=== PATIENT | male | born 1985 | race Two or more races ===

== ENCOUNTER 2020-12-07 09:57 | Inpatient (IN) | payer BC, OTHER ==
[~2020-12-07] VITALS: Ht 167.6 cm; Wt 122.0 kg
--- NOTE | 2020-12-07 10:55 | RAD ---
EXAM: Chest, single view. HISTORY: Cough. Covid 19. COMPARISON: None. FINDINGS: A frontal view of the chest obtained. There is diffuse interstitial and alveolar infiltrate . There is no consolidation, pleural effusion or pneumothorax. The heart is normal in size for portab le technique. IMPRESSION: Diffuse mixed interstitial and alveolar infiltrate. Electronically signed by: Karishma Jordan MD (12/07/2020 10:52 AM) [id number]
[2020-12-07] MEDS ORDERED: CEFEPIME HCL IV Push 1 GM VIAL. IVP ONE (11:15)
[2020-12-07] MEDS ORDERED: IV NORMAL SALINE 1000ML BAG 1,000 ML IV ONE (11:15)
[2020-12-07] MEDS ORDERED: AZITHRMYCN 500MG IVPB FOR OMNI 250 ML IV ONE (11:15)
[2020-12-07] MEDS ORDERED: DEXAMETHASONE SOD PHOS 20 MG/5 ML VIAL. IV ONE (11:15)
--- NOTE | 2020-12-07 11:38 | PHYS DOC ---
Past Medical History Past Medical History: No Pertinent History Past Surgical History: No Surgical History Smoking Status: Never Smoker Alcohol Use: None General Adult EDM: Chief Complaint: COUGH HPI: HPI: 35-year-old male presenting to the emergency department today with cough fever his cough is nonproductive. He also has headache. He denies any known Covid exposure. He denies chest pain. He has muscle aches throughout his entire body. He does have chills. His headache was not sudden in onset and is mild in severity. He denies nuchal rigidity. Onset 2 to 3 days. Duration i ntermittent. No alleviating or exacerbating factors. Review of systems is negative for chest pain. He does have some shortness of breath with exertion but at rest is not short of breath. He denies vomiting. Positive for fevers. Negative for rash. Negative for nuchal rigidity. He denies abdominal pain all other review of systems negative. ED course: 35-year-old male presenting with cough congestion fevers and flulike symptoms. X-ray shows pneumonia. CBC unremarkable. Chemistry panel unremarkable. LDH is elevated. CRP is elevated. D-dimer within normal limits. Influenza negative. Suspect Covid pneumonia. Patient was given broad-spectrum antibiotics and Decadron and admitted to the hospitalist who accepts the patient for admission. Heart Score: Risk Factors: Risk Factors: DM, Current or recent (<one month) smoker, HTN, HLP, family hi story of CAD, obesity. Risk Scores: Score 0 - 3: 2.5% MACE over next 6 weeks - Discharge Home Score 4 - 6: 20.3% MACE over next 6 weeks - Admit for Clinical Observation Score 7 - 10: 72.7% MACE over next 6 weeks - Early Invasive Strategies Current Medications: Current Medications Medications (Trade) Dose Ordered Sig/Ronen Start Time Stop Time Status Last Admin Dose Admin Azithromycin 250 ml @ 250 mls/hr 1X ONCE 12/07/20 11:15 12/07/20 12:14 12/07/20 11:33 250 MLS/HR Cefepime HCl (Maxipime) 1 gm 1X ONCE 12/07/20 11:15 12/07/20 11:16 DC 12/07/20 11:33 1 GM Dexamethasone Sodium Phosphate (Decadron) 6 mg 1X ONCE 12/07/20 11:15 12/07/20 11:16 DC 12/07/20 11:30 6 MG Sodium Chloride 1,000 ml @ 1,000 mls/hr 1X ONCE 12/07/20 11:15 12/07/20 12:14 12/07/20 11:33 1,000 MLS/HR Allergies: Allergies: Allergies Coded Allergies Type Severity Reaction Last Updated Verified No Known Drug Allergies 12/07/20 No Physical Exam: PE: Constitutional: Well developed, well nourished, no acute distress, non-toxic appearance. [] HENT: Normocephalic, atraumatic, bilateral external ears normal, oropharynx moist, no oral exudates, nose normal. [] Eyes: PERRLA, EOMI, conjunctiva normal, no discharge. [] Neck: Normal range of motion, no tenderness, supple, no stridor. [] No nuchal rigidity. No rashes. Cardiovascular:Heart rate regular rhythm, no murmur [] Lungs & Thorax: Crackles bilaterally without rhonchi. No wheezing. Not in respiratory distress. Abdomen: Bowel sounds normal, soft, no tenderness, no masses, no pulsatile masses. [] Skin: Warm, dry, no erythema, no rash. [] Back: No tenderness, no CVA tenderness. [] Extremities: No tenderness, no cyanosis, no clubbing, ROM intact, no edema. [] Neurologic: Alert and oriented X 3, normal motor function, normal sensory function, no focal deficits noted. [] Psychologic: Affect normal, judgement normal, mood normal. [] Current Patient Data: Vital Signs: Vital Signs Date Time Temp Pulse Resp B/P (MAP) Pulse Ox O2 Delivery O2 Flow Rate FiO2 12/07/20 10:16 103.0 121 18 153/79 (103) 94 Room Air 103.0 EKG: EKG: [] Radiology/Procedures: Radiology/Procedures: [] Course & Med Decision Making: Course & Med Decision Making Pertinent Labs and Imaging studies reviewed. (See chart for details) [] Dragon Disclaimer: Dragon Disclaimer: This electronic medical record was generated, in whole or in part, using a voice recognition dictation system. Departure Departure Impression: Primary Impression: Pneumonia due to COVID-19 virus Disposition: ADMITTED INPT THIS HOSP Admitting Physician: HIMS Condition: STABLE Referrals: NO PCP (PCP) REBECCA DIETZ MD Dec 07, 2020 11:38
[2020-12-07 11:41] LABS: EOS % 0 % (0-3); HEMATOCRIT 42.5 % (39.0-53.0); HEMOGLOBIN 14.8 g/dL (13.0-17.5); LYMPH % 18 % (24-48); MEAN CORPUSCULAR HEMOGLOBIN 30 pg (25-35); MEAN CORPUSCULAR HGB CONC 35 g/dL (31-37); MEAN CORPUSCULAR VOLUME 86 fL (79-100); MONO % 6 % (0-9); NEUT % 76 % (31-73); PLATELET COUNT 139 x10^3/uL (140-400); RED BLOOD COUNT 4.95 x10^6/uL (4.30-5.70); RED CELL DISTRIBUTION WIDTH 13.2 % (11.5-14.5); WHITE BLOOD COUNT 6.2 x10^3/uL (4.0-11.0)
[2020-12-07 11:42] LABS: BASO % 0 % (0-3); LYMPH # 1.1 x10^3/uL (1.0-4.8); MONO # 0.4 x10^3/uL (0.0-1.1); NEUT # 4.7 x10^3/uL (1.8-7.7)
[2020-12-07 11:54] LABS: CALCIUM 8.7 mg/dL (8.5-10.1); CREATININE 0.8 mg/dL (0.7-1.3); GFR 109.4; POTASSIUM 3.4 mmol/L (3.5-5.1)
[2020-12-07 11:57] LABS: INFLUENZA A PATIENT NEGATIVE (NEGATIVE); INFLUENZA B PATIENT NEGATIVE (NEGATIVE)
[2020-12-07 12:01] LABS: ALBUMIN 3.5 g/dL (3.4-5.0); ALBUMIN/GLOBULIN RATIO 0.8 (1.0-1.7); TOTAL BILIRUBIN 0.4 mg/dL (0.2-1.0); TOTAL PROTEIN 7.8 g/dL (6.4-8.2)
[2020-12-07] MEDS ORDERED: IV NORMAL SALINE 1000ML BAG 1,000 ML IV SCH (12:45)
[2020-12-07 14:30] VITALS: BP 141/81
[2020-12-07] MEDS ORDERED: oxyCODONE IR 5 MG TABLET PO PRN (16:15)
[2020-12-07] MEDS ORDERED: CALCIUM CARBONATE 500 MG TAB.CHEW PO PRN (16:15)
[2020-12-07] MEDS ORDERED: MAGNESIUM HYDROXIDE 2,400 MG/30 ML ORAL.SUSP. PO PRN (16:15)
[2020-12-07] MEDS ORDERED: ACETAMINOPHEN 325 MG TABLET. PO PRN (16:15)
[2020-12-07] MEDS ORDERED: LACTULOSE 20 GM/30 ML SOLUTION. PO PRN (16:15)
[2020-12-07] MEDS ORDERED: ONDANSETRON PF 4 MG/2 ML VIAL. IVP PRN (16:15)
[2020-12-07] MEDS ORDERED: ZOLPIDEM 5 MG TABLET. PO PRN (16:15)
[2020-12-07] MEDS ORDERED: MAG HYDROX/ALUMINUM HYD/SIMETH 30 ML ORAL.SUSP PO PRN (16:15)
[2020-12-07] MEDS ORDERED: ELECTROLYTE (NON-ICU) PROTOCOL. MC PRN (16:15)
[2020-12-07] MEDS ORDERED: MORPHINE SULFATE 2 MG/ML VIAL. IV PRN (16:15)
[2020-12-07] MEDS: PIPERACILLIN/TAZOBACTAM 4.5 GM in IV NORMAL SALINE 100ML 100 ML IV SCH (16:47)
[2020-12-07] MEDS ORDERED: ENOXAPARIN 40 MG/0.4 ML SYRINGE. SQ SCH (17:00)
--- NOTE | 2020-12-07 17:50 | PDOC1 ---
History and Physical Date of Admission Date of Admission 12/07/2020 Identification/Chief Complaint Chief Complaint I feel ill Source Source: Chart review, Patient History of Present Illness History of Present Illness Patient is a 35-year-old gentleman with no seen medical history who works as a local [place] truck driver who was in his usual state of health until yesterday evening when he started noticing generalized malaise fatigue headache. Subjective fever has been reported by the patient he denies any diaphoresis he has not quantified his temperature. He felt like he was coming down with a common cold and fell asleep, he did not have sputum production she did he did complain of a mild cough dry in nature no tachypnea no sensation of impending doom has been reported. Patient unfortunately woke up with similar symptoms and actually feeling worse compared to yesterday reason why he decided to consult the emergency department. He was found to have an abnormal x-ray and due to the acuity of his presentation patient is being admitted at the request of the ER for further evaluation and treatment. He is not requiring oxygen at the present time is hemodynamically stable. The plan of care has been explained in detail. The patient denies any contact with sick patients of COVID-19. For the most part he has absurd social distancing and or mask. He is complaining of headache generalized malaise at the time of my evaluation seems acutely ill no chest pain palpitations no abdominal pain he does refer some nausea no vomiting at the present time lower extremities with no edema. No neurological deficit appreciated. Plan of care has been explained detail and all of his concerns addressed to the best of my abilities Past Medical History Past Medical History No significant past medical history Cardiovascular: No pertinent hx Past Surgical History Past Surgical History: No pertinent history Family History Family History: No Significant Social History Smoke: No ALCOHOL: none Drugs: None Current Problem List Problem List Problems Medical Problems: (1) Pneumonia due to COVID-19 virus Status: Acute Current Medications Current Medications Current Medications Medications (Trade) Dose Ordered Sig/Ronen Start Time Stop Time Status Last Admin Dose Admin Acetaminophen (Tylenol) 650 mg PRN Q6HRS PRN 12/07/20 16:15 Al Hydroxide/Mg Hydroxide (Mylanta Plus Xs) 30 ml PRN Q3HRS PRN 12/07/20 16:15 Azithromycin (Zithromax) 500 mg DAILY 12/08/20 09:00 Calcium Carbonate/ Glycine (Tums) 500 mg PRN Q3HRS PRN 12/07/20 16:15 Cefepime HCl (Maxipime) 1 gm 1X ONCE 12/07/20 11:15 12/07/20 11:16 DC 12/07/20 11:33 1 GM Dexamethasone Sodium Phosphate (Decadron) 6 mg 1X ONCE 12/07/20 11:15 12/07/20 11:16 DC 12/07/20 11:30 6 MG Docusate Sodium (Colace) 100 mg BID 12/07/20 21:00 Enoxaparin Sodium (Lovenox 40mg Syringe) 40 mg Q24H 12/07/20 17:00 12/07/20 16:49 40 MG Info (Non-Icu Electrolyte Protocol) 1 ea PRN DAILY PRN 12/07/20 16:15 Lactulose (Lactulose) 20 gm PRN Q12HR PRN 12/07/20 16:15 Magnesium Hydroxide (Milk Of Magnesia) 2,400 mg PRN Q12HR PRN 12/07/20 16:15 Methylprednisolone Sodium Succinate (SOLU-Medrol 40MG VIAL) 40 mg Q12HR 12/07/20 21:00 Morphine Sulfate (Morphine Sulfate) 2 mg PRN Q1HR PRN 12/07/20 16:15 Ondansetron HCl (Zofran) 4 mg PRN Q6HRS PRN 12/07/20 16:15 Oxycodone HCl (Roxicodone) 5 mg PRN Q3HRS PRN 12/07/20 16:15 Piperacillin Sod/ Tazobactam Sod 4.5 gm/Sodium Chloride 100 ml @ 200 mls/hr Q6HRS 12/07/20 17:00 12/07/20 16:47 200 MLS/HR Senna/Docusate Sodium (Senna Plus) 1 tab BID 12/07/20 21:00 Sodium Chloride 1,000 ml @ 100 mls/hr Q10H 12/07/20 12:45 12/07/20 16:44 DC 12/07/20 15:32 100 MLS/HR Zolpidem Tartrate (Ambien) 5 mg PRN QHS PRN 12/07/20 16:15 Allergies Allergies Allergies Coded Allergies Type Severity Reaction Last Updated Verified No Known Drug Allergies 1/8/21 No ROS Review of System CONSTITUTIONAL: No fever or chills EYES: No recent changes SKIN: No rash or itching CARDIOVASCULAR: No chest pain, syncope, palpitations, or edema RESPIRATORY: No SOB or cough GASTROINTESTINAL: No nausea, vomiting or abdominal pain NEUROLOGICAL: No headaches or weakness ENDOCRINE: No cold or heat intolerance GENITOURINARY: No urgency or frequency of urination MUSCULOSKELETAL: No back pain or joint pain LYMPHATICS: No enlarged lymph nodes PSYCHIATRIC: No anxiety or depression Physical Exam Physical Exam GEN.: No apparent distress. Alert and oriented. HEENT: Head is normocephalic, atraumatic NECK: Supple. LUNGS: Clear to auscultation. HEART: RRR, S1, S2 present. Peripheral pulses intact ABDOMEN: Soft, nontender. Positive bowel sounds. EXTREMITIES: Without any cyanosis. NEUROLOGIC: Normal speech, normal tone PSYCHIATRIC: Normal affect, normal mood. SKIN: No ulcerations Vitals Vitals Vital Signs Date Time Temp Pulse Resp B/P (MAP) Pulse Ox O2 Delivery O2 Flow Rate FiO2 12/07/20 14:30 100.3 106 18 141/81 (101) 93 Room Air 100.3 Labs Labs Laboratory Tests Test 12/07/20 11:22 12/07/20 11:25 White Blood Count 6.2 x10^3/uL (4.0-11.0) Red Blood Count 4.95 x10^6/uL (4.30-5.70) Hemoglobin 14.8 g/dL (13.0-17.5) Hematocrit 42.5 % (39.0-53.0) Mean Corpuscular Volume 86 fL (79-100) Mean Corpuscular Hemoglobin 30 pg (25-35) Mean Corpuscular Hemoglobin Concent 35 g/dL (31-37) Red Cell Distribution Width 13.2 % (11.5-14.5) Platelet Count 139 x10^3/uL (140-400) Neutrophils (%) (Auto) 76 % (31-73) Lymphocytes (%) (Auto) 18 % (24-48) Monocytes (%) (Auto) 6 % (0-9) Eosinophils (%) (Auto) 0 % (0-3) Basophils (%) (Auto) 0 % (0-3) Neutrophils # (Auto) 4.7 x10^3/uL (1.8-7.7) Lymphocytes # (Auto) 1.1 x10^3/uL (1.0-4.8) Monocytes # (Auto) 0.4 x10^3/uL (0.0-1.1) Eosinophils # (Auto) 0.0 x10^3/uL (0.0-0.7) Basophils # (Auto) 0.0 x10^3/uL (0.0-0.2) D-Dimer (Emi) 0.42 ug/mlFEU (0.00-0.50) Sodium Level 136 mmol/L (136-145) Potassium Level 3.4 mmol/L (3.5-5.1) Chloride Level 100 mmol/L (98-107) Carbon Dioxide Level 25 mmol/L (21-32) Anion Gap 11 (6-14) Blood Urea Nitrogen 11 mg/dL (8-26) Creatinine 0.8 mg/dL (0.7-1.3) Estimated GFR (Cockcroft-Gault) 109.4 BUN/Creatinine Ratio 14 (6-20) Glucose Level 108 mg/dL (70-99) Lactic Acid Level 1.0 mmol/L (0.4-2.0) Calcium Level 8.7 mg/dL (8.5-10.1) Total Bilirubin 0.4 mg/dL (0.2-1.0) Aspartate Amino Transf (AST/SGOT) 40 U/L (15-37) Alanine Aminotransferase (ALT/SGPT) 41 U/L (16-63) Alkaline Phosphatase 38 U/L (46-116) Lactate Dehydrogenase 352 U/L (85-227) C-Reactive Protein, Quantitative 71.0 mg/L (0-3.3) Total Protein 7.8 g/dL (6.4-8.2) Albumin 3.5 g/dL (3.4-5.0) Albumin/Globulin Ratio 0.8 (1.0-1.7) Influenza Type A Antigen Negative (NEGATIVE) Influenza Type B Antigen Negative (NEGATIVE) Laboratory Tests Test 12/07/20 11:22 12/07/20 11:25 White Blood Count 6.2 x10^3/uL (4.0-11.0) Red Blood Count 4.95 x10^6/uL (4.30-5.70) Hemoglobin 14.8 g/dL (13.0-17.5) Hematocrit 42.5 % (39.0-53.0) Mean Corpuscular Volume 86 fL (79-100) Mean Corpuscular Hemoglobin 30 pg (25-35) Mean Corpuscular Hemoglobin Concent 35 g/dL (31-37) Red Cell Distribution Width 13.2 % (11.5-14.5) Platelet Count 139 x10^3/uL (140-400) Neutrophils (%) (Auto) 76 % (31-73) Lymphocytes (%) (Auto) 18 % (24-48) Monocytes (%) (Auto) 6 % (0-9) Eosinophils (%) (Auto) 0 % (0-3) Basophils (%) (Auto) 0 % (0-3) Neutrophils # (Auto) 4.7 x10^3/uL (1.8-7.7) Lymphocytes # (Auto) 1.1 x10^3/uL (1.0-4.8) Monocytes # (Auto) 0.4 x10^3/uL (0.0-1.1) Eosinophils # (Auto) 0.0 x10^3/uL (0.0-0.7) Basophils # (Auto) 0.0 x10^3/uL (0.0-0.2) D-Dimer (Emi) 0.42 ug/mlFEU (0.00-0.50) Sodium Level 136 mmol/L (136-145) Potassium Level 3.4 mmol/L (3.5-5.1) Chloride Level 100 mmol/L (98-107) Carbon Dioxide Level 25 mmol/L (21-32) Anion Gap 11 (6-14) Blood Urea Nitrogen 11 mg/dL (8-26) Creatinine 0.8 mg/dL (0.7-1.3) Estimated GFR (Cockcroft-Gault) 109.4 BUN/Creatinine Ratio 14 (6-20) Glucose Level 108 mg/dL (70-99) Lactic Acid Level 1.0 mmol/L (0.4-2.0) Calcium Level 8.7 mg/dL (8.5-10.1) Total Bilirubin 0.4 mg/dL (0.2-1.0) Aspartate Amino Transf (AST/SGOT) 40 U/L (15-37) Alanine Aminotransferase (ALT/SGPT) 41 U/L (16-63) Alkaline Phosphatase 38 U/L (46-116) Lactate Dehydrogenase 352 U/L (85-227) C-Reactive Protein, Quantitative 71.0 mg/L (0-3.3) Total Protein 7.8 g/dL (6.4-8.2) Albumin 3.5 g/dL (3.4-5.0) Albumin/Globulin Ratio 0.8 (1.0-1.7) Influenza Type A Antigen Negative (NEGATIVE) Influenza Type B Antigen Negative (NEGATIVE) VTE Prophylaxis Ordered VTE Prophylaxis Devices: No VTE Pharmacological Prophylaxi: Yes Assessment/Plan Assessment/Plan Atypical pneumonia Morbid obesity with a BMI of 43 Thrombocytopenia Hypokalemia Hyperglycemia Plan: Supportive measures We will start the patient on broad-spectrum antibiotics We will start Solu-Medrol Follow results of coronavirus PCR Symptomatic relief of headache and generalized malaise DVT prophylaxis low Further recommendations based on the clinical course Justifications for Admission General Conditions Poss Metaboilic Acidosis?: Yes Other Justification DAYSI WATTS MD Dec 07, 2020 17:50
[2020-12-07 19:00] VITALS: BP 175/70
[2020-12-07] MEDS: methylPREDNISolone SOD SUCC PF 40 MG/ML VIAL. IV SCH (20:51)
[2020-12-07] MEDS: DOCUSATE SODIUM 100 MG CAPSULE. PO SCH (20:51)
[2020-12-07] MEDS: SENNOSIDES/DOCUSATE 8.6/50MG TABLET. PO SCH (20:51)
[2020-12-07 23:35] VITALS: BP 139/67
[2020-12-08] MEDS: PIPERACILLIN/TAZOBACTAM 4.5 GM in IV NORMAL SALINE 100ML 100 ML IV SCH ×4 (00:29→18:00)
[2020-12-08 03:50] VITALS: BP 198/82
[2020-12-08 04:24] LABS: BASO % 0 % (0-3); EOS % 0 % (0-3); HEMOGLOBIN 14.1 g/dL (13.0-17.5); LYMPH % 31 % (24-48); MEAN CORPUSCULAR HEMOGLOBIN 30 pg (25-35); MEAN CORPUSCULAR HGB CONC 34 g/dL (31-37); MEAN CORPUSCULAR VOLUME 86 fL (79-100); MONO # 0.1 x10^3/uL (0.0-1.1); MONO % 4 % (0-9); NEUT # 2.2 x10^3/uL (1.8-7.7); NEUT % 65 % (31-73); PLATELET COUNT 140 x10^3/uL (140-400); RED BLOOD COUNT 4.76 x10^6/uL (4.30-5.70); RED CELL DISTRIBUTION WIDTH 13.3 % (11.5-14.5); WHITE BLOOD COUNT 3.3 x10^3/uL (4.0-11.0)
[2020-12-08 05:28] LABS: CALCIUM 8.7 mg/dL (8.5-10.1); CREATININE 0.8 mg/dL (0.7-1.3); GFR 109.4; POTASSIUM 3.9 mmol/L (3.5-5.1)
[2020-12-08 07:00] VITALS: BP 120/71
--- NOTE | 2020-12-08 07:49 | PDOC ---
[employer] PROGRESS NOTE Date of Service DOS: DATE: 12/08/20 TIME: 07:44 Chief Complaint Chief Complaint A/P: Atypical pneumonia Morbid obesity with a BMI of 43 Thrombocytopenia Hypokalemia Hyperglycemia Plan: Supportive measures We will start the patient on broad-spectrum antibiotics We will start Solu-Medrol Follow results of coronavirus PCR Symptomatic relief of headache and generalized malaise DVT prophylaxis low Further recommendations based on the clinical course History of Present Illness History of Present Illness Mr Woods is a 35 yo M with no significant PMHx who works as a taxicab driver who was in his usual state of health until 12/06/20 in the evening when he started noticing generalized malaise fatigue headache as well as fever. He did complain of a mild cough dry in nature. In ED found with abnormal x-ray with bilateral interstitial opacities. He is also febrile 103 F. Labs with WBC 3.3, Hb 14.1, platelets 139, NA 138, K3.9, BUN 12, CR 0.8, glucose 144 LDH 352. Rapid influenza test negative. O2 saturations continued to drop below 90% patient was admitted for further treatment. Highly suspicious for COVID-19. Febrile to 100.6 F overnight. Pain improved after IV doses of Zosyn and azithromycin. O2 saturations 90% on room room air. COVID-19 still pending. He has no loss of sense of taste or smell no change in appetite no abdominal discomfort or diarrhea. His cough is stable. He wishes to convalesce at home regardless of his COVID-19 status and will continue to self isolate until his results are called and he wishes to go home on prednisone and doxycycline after our discussion. Vitals/I&O Vitals/I&O: Vital Signs Date Time Temp Pulse Resp B/P (MAP) Pulse Ox O2 Delivery O2 Flow Rate FiO2 12/08/20 03:50 98.1 73 18 198/82 (120) 90 Room Air 98.1 I & O 12/07/20 12/07/20 12/08/20 14:59 22:59 06:59 Output Total 650 ml Balance -650 ml Physical Exam General: Alert, Oriented X3, Cooperative Heart: Regular rate, Normal S1, Normal S2 Lungs: Clear Abdomen: Normal bowel sounds, Soft Extremities: No clubbing, No cyanosis Skin: No rashes, No breakdown Labs Labs: Laboratory Tests Test 12/07/20 11:22 12/07/20 11:25 12/08/20 03:30 White Blood Count 6.2 x10^3/uL (4.0-11.0) 3.3 x10^3/uL (4.0-11.0) Red Blood Count 4.95 x10^6/uL (4.30-5.70) 4.76 x10^6/uL (4.30-5.70) Hemoglobin 14.8 g/dL (13.0-17.5) 14.1 g/dL (13.0-17.5) Hematocrit 42.5 % (39.0-53.0) 41.0 % (39.0-53.0) Mean Corpuscular Volume 86 fL (79-100) 86 fL (79-100) Mean Corpuscular Hemoglobin 30 pg (25-35) 30 pg (25-35) Mean Corpuscular Hemoglobin Concent 35 g/dL (31-37) 34 g/dL (31-37) Red Cell Distribution Width 13.2 % (11.5-14.5) 13.3 % (11.5-14.5) Platelet Count 139 x10^3/uL (140-400) 140 x10^3/uL (140-400) Neutrophils (%) (Auto) 76 % (31-73) 65 % (31-73) Lymphocytes (%) (Auto) 18 % (24-48) 31 % (24-48) Monocytes (%) (Auto) 6 % (0-9) 4 % (0-9) Eosinophils (%) (Auto) 0 % (0-3) 0 % (0-3) Basophils (%) (Auto) 0 % (0-3) 0 % (0-3) Neutrophils # (Auto) 4.7 x10^3/uL (1.8-7.7) 2.2 x10^3/uL (1.8-7.7) Lymphocytes # (Auto) 1.1 x10^3/uL (1.0-4.8) 1.0 x10^3/uL (1.0-4.8) Monocytes # (Auto) 0.4 x10^3/uL (0.0-1.1) 0.1 x10^3/uL (0.0-1.1) Eosinophils # (Auto) 0.0 x10^3/uL (0.0-0.7) 0.0 x10^3/uL (0.0-0.7) Basophils # (Auto) 0.0 x10^3/uL (0.0-0.2) 0.0 x10^3/uL (0.0-0.2) D-Dimer (Emi) 0.42 ug/mlFEU (0.00-0.50) Sodium Level 136 mmol/L (136-145) 138 mmol/L (136-145) Potassium Level 3.4 mmol/L (3.5-5.1) 3.9 mmol/L (3.5-5.1) Chloride Level 100 mmol/L (98-107) 104 mmol/L (98-107) Carbon Dioxide Level 25 mmol/L (21-32) 27 mmol/L (21-32) Anion Gap 11 (6-14) 7 (6-14) Blood Urea Nitrogen 11 mg/dL (8-26) 12 mg/dL (8-26) Creatinine 0.8 mg/dL (0.7-1.3) 0.8 mg/dL (0.7-1.3) Estimated GFR (Cockcroft-Gault) 109.4 109.4 BUN/Creatinine Ratio 14 (6-20) Glucose Level 108 mg/dL (70-99) 144 mg/dL (70-99) Lactic Acid Level 1.0 mmol/L (0.4-2.0) Calcium Level 8.7 mg/dL (8.5-10.1) 8.7 mg/dL (8.5-10.1) Total Bilirubin 0.4 mg/dL (0.2-1.0) Aspartate Amino Transf (AST/SGOT) 40 U/L (15-37) Alanine Aminotransferase (ALT/SGPT) 41 U/L (16-63) Alkaline Phosphatase 38 U/L (46-116) Lactate Dehydrogenase 352 U/L (85-227) C-Reactive Protein, Quantitative 71.0 mg/L (0-3.3) Total Protein 7.8 g/dL (6.4-8.2) Albumin 3.5 g/dL (3.4-5.0) Albumin/Globulin Ratio 0.8 (1.0-1.7) Influenza Type A Antigen Negative (NEGATIVE) Influenza Type B Antigen Negative (NEGATIVE) Assessment and Plan Assessmemt and Plan Problems Medical Problems: (1) Pneumonia due to COVID-19 virus Status: Acute Comment Review of Relevant I have reviewed the following items robert (where applicable) has been applied. Medications: Current Medications Medications (Trade) Dose Ordered Sig/Ronen Route PRN Reason Start Time Stop Time Status Last Admin Dose Admin Cefepime HCl (Maxipime) 1 gm 1X ONCE IVP 12/07/20 11:15 12/07/20 11:16 DC 12/07/20 11:33 Sodium Chloride 1,000 ml @ 1,000 mls/hr 1X ONCE IV 12/07/20 11:15 12/07/20 12:14 DC 12/07/20 11:33 Azithromycin 250 ml @ 250 mls/hr 1X ONCE IV 12/07/20 11:15 12/07/20 12:14 DC 12/07/20 11:33 Dexamethasone Sodium Phosphate (Decadron) 6 mg 1X ONCE IV 12/07/20 11:15 12/07/20 11:16 DC 12/07/20 11:30 Sodium Chloride 1,000 ml @ 100 mls/hr Q10H IV 12/07/20 12:45 12/07/20 16:44 DC 12/07/20 15:32 Zolpidem Tartrate (Ambien) 5 mg PRN QHS PRN PO INSOMNIA, MAY REPEAT IN 1HR 12/07/20 16:15 12/07/20 20:51 Acetaminophen (Tylenol) 650 mg PRN Q6HRS PRN PO Headaches, Temp > 101.5F 12/07/20 16:15 12/07/20 20:51 Senna/Docusate Sodium (Senna Plus) 1 tab BID PO 12/07/20 21:00 12/07/20 20:51 Docusate Sodium (Colace) 100 mg BID PO 12/07/20 21:00 12/07/20 20:51 Enoxaparin Sodium (Lovenox 40mg Syringe) 40 mg Q24H SQ 12/07/20 17:00 12/07/20 18:12 DC 12/07/20 16:49 Methylprednisolone Sodium Succinate (SOLU-Medrol 40MG VIAL) 40 mg Q12HR IV 12/07/20 21:00 12/07/20 20:51 Piperacillin Sod/ Tazobactam Sod 4.5 gm/Sodium Chloride 100 ml @ 200 mls/hr Q6HRS IV 12/07/20 17:00 12/08/20 00:29 Justifications for Admission General Conditions Poss Metaboilic Acidosis?: Yes Other Justification MOHINI GRANT MD Dec 08, 2020 07:49
--- NOTE | 2020-12-08 08:02 | NUR ---
currently we do not know when this pt will disharge home. we are to do a 6 min walk before discharge home. have cancelled the walk at this time we will need to reorder it once we know pt status with covid test. This was per RT request. Melo Navarro RN
[2020-12-08] MEDS ORDERED: ENOXAPARIN 40 MG/0.4 ML SYRINGE. SQ SCH (09:00)
[2020-12-08] MEDS ORDERED: AZITHROMYCIN 250 MG TABLET. PO SCH (09:00)
[2020-12-08] MEDS: SENNOSIDES/DOCUSATE 8.6/50MG TABLET. PO SCH (09:00)
[2020-12-08] MEDS: DOCUSATE SODIUM 100 MG CAPSULE. PO SCH (09:00)
[2020-12-08] MEDS: methylPREDNISolone SOD SUCC PF 40 MG/ML VIAL. IV SCH (09:28)
[2020-12-08 11:00] VITALS: BP 140/69
[2020-12-08 15:00] VITALS: BP 140/68
[2020-12-08] MEDS ORDERED: DOXY100C2 PO (16:52)
[2020-12-08] MEDS ORDERED: PRED20TA PO (16:52)
--- NOTE | 2020-12-08 17:10 | PDOC3 ---
Discharge Summary Visit Information Date of Admission: Dec 07, 2020 Date of Discharge: Dec 08, 2020 Admitting Diagnosis: Atypical pneumonia Final Diagnosis Problems Medical Problems: (1) Pneumonia due to COVID-19 virus Status: Acute Brief Hospital Course Allergies Allergies Coded Allergies Type Severity Reaction Last Updated Verified No Known Drug Allergies 12/07/20 No Vital Signs Vital Signs Date Time Temp Pulse Resp B/P (MAP) Pulse Ox O2 Delivery O2 Flow Rate FiO2 12/08/20 15:00 98.7 90 17 140/68 (92) 92 Room Air 98.7 Lab Results Laboratory Tests Test 12/07/20 11:22 12/07/20 11:25 12/08/20 03:30 White Blood Count 6.2 x10^3/uL (4.0-11.0) 3.3 x10^3/uL (4.0-11.0) Red Blood Count 4.95 x10^6/uL (4.30-5.70) 4.76 x10^6/uL (4.30-5.70) Hemoglobin 14.8 g/dL (13.0-17.5) 14.1 g/dL (13.0-17.5) Hematocrit 42.5 % (39.0-53.0) 41.0 % (39.0-53.0) Mean Corpuscular Volume 86 fL (79-100) 86 fL (79-100) Mean Corpuscular Hemoglobin 30 pg (25-35) 30 pg (25-35) Mean Corpuscular Hemoglobin Concent 35 g/dL (31-37) 34 g/dL (31-37) Red Cell Distribution Width 13.2 % (11.5-14.5) 13.3 % (11.5-14.5) Platelet Count 139 x10^3/uL (140-400) 140 x10^3/uL (140-400) Neutrophils (%) (Auto) 76 % (31-73) 65 % (31-73) Lymphocytes (%) (Auto) 18 % (24-48) 31 % (24-48) Monocytes (%) (Auto) 6 % (0-9) 4 % (0-9) Eosinophils (%) (Auto) 0 % (0-3) 0 % (0-3) Basophils (%) (Auto) 0 % (0-3) 0 % (0-3) Neutrophils # (Auto) 4.7 x10^3/uL (1.8-7.7) 2.2 x10^3/uL (1.8-7.7) Lymphocytes # (Auto) 1.1 x10^3/uL (1.0-4.8) 1.0 x10^3/uL (1.0-4.8) Monocytes # (Auto) 0.4 x10^3/uL (0.0-1.1) 0.1 x10^3/uL (0.0-1.1) Eosinophils # (Auto) 0.0 x10^3/uL (0.0-0.7) 0.0 x10^3/uL (0.0-0.7) Basophils # (Auto) 0.0 x10^3/uL (0.0-0.2) 0.0 x10^3/uL (0.0-0.2) D-Dimer (Emi) 0.42 ug/mlFEU (0.00-0.50) Sodium Level 136 mmol/L (136-145) 138 mmol/L (136-145) Potassium Level 3.4 mmol/L (3.5-5.1) 3.9 mmol/L (3.5-5.1) Chloride Level 100 mmol/L (98-107) 104 mmol/L (98-107) Carbon Dioxide Level 25 mmol/L (21-32) 27 mmol/L (21-32) Anion Gap 11 (6-14) 7 (6-14) Blood Urea Nitrogen 11 mg/dL (8-26) 12 mg/dL (8-26) Creatinine 0.8 mg/dL (0.7-1.3) 0.8 mg/dL (0.7-1.3) Estimated GFR (Cockcroft-Gault) 109.4 109.4 BUN/Creatinine Ratio 14 (6-20) Glucose Level 108 mg/dL (70-99) 144 mg/dL (70-99) Lactic Acid Level 1.0 mmol/L (0.4-2.0) Calcium Level 8.7 mg/dL (8.5-10.1) 8.7 mg/dL (8.5-10.1) Total Bilirubin 0.4 mg/dL (0.2-1.0) Aspartate Amino Transf (AST/SGOT) 40 U/L (15-37) Alanine Aminotransferase (ALT/SGPT) 41 U/L (16-63) Alkaline Phosphatase 38 U/L (46-116) Lactate Dehydrogenase 352 U/L (85-227) C-Reactive Protein, Quantitative 71.0 mg/L (0-3.3) Total Protein 7.8 g/dL (6.4-8.2) Albumin 3.5 g/dL (3.4-5.0) Albumin/Globulin Ratio 0.8 (1.0-1.7) Coronavirus (PCR) Detected (Not Detected) Influenza Type A Antigen Negative (NEGATIVE) Influenza Type B Antigen Negative (NEGATIVE) Laboratory Tests Test 12/08/20 03:30 White Blood Count 3.3 x10^3/uL (4.0-11.0) Red Blood Count 4.76 x10^6/uL (4.30-5.70) Hemoglobin 14.1 g/dL (13.0-17.5) Hematocrit 41.0 % (39.0-53.0) Mean Corpuscular Volume 86 fL (79-100) Mean Corpuscular Hemoglobin 30 pg (25-35) Mean Corpuscular Hemoglobin Concent 34 g/dL (31-37) Red Cell Distribution Width 13.3 % (11.5-14.5) Platelet Count 140 x10^3/uL (140-400) Neutrophils (%) (Auto) 65 % (31-73) Lymphocytes (%) (Auto) 31 % (24-48) Monocytes (%) (Auto) 4 % (0-9) Eosinophils (%) (Auto) 0 % (0-3) Basophils (%) (Auto) 0 % (0-3) Neutrophils # (Auto) 2.2 x10^3/uL (1.8-7.7) Lymphocytes # (Auto) 1.0 x10^3/uL (1.0-4.8) Monocytes # (Auto) 0.1 x10^3/uL (0.0-1.1) Eosinophils # (Auto) 0.0 x10^3/uL (0.0-0.7) Basophils # (Auto) 0.0 x10^3/uL (0.0-0.2) Sodium Level 138 mmol/L (136-145) Potassium Level 3.9 mmol/L (3.5-5.1) Chloride Level 104 mmol/L (98-107) Carbon Dioxide Level 27 mmol/L (21-32) Anion Gap 7 (6-14) Blood Urea Nitrogen 12 mg/dL (8-26) Creatinine 0.8 mg/dL (0.7-1.3) Estimated GFR (Cockcroft-Gault) 109.4 Glucose Level 144 mg/dL (70-99) Calcium Level 8.7 mg/dL (8.5-10.1) Brief Hospital Course Mr Woods is a 35 yo M with no significant PMHx who works as a [employer] driver who was in his usual state of health until 12/06/20 in the evening when he started noticing generalized malaise fatigue headache as well as fever. He did complain of a mild cough dry in nature. In ED found with abnormal x-ray with bilateral interstitial opacities. He is also febrile 103 F. Labs with WBC 3.3, Hb 14.1, platelets 139, NA 138, K3.9, BUN 12, CR 0.8, glucose 144 LDH 352. Rapid influenza test negative. O2 saturations continued to drop below 90% patient was admitted for further treatment. Highly suspicious for COVID-19. Febrile to 100.6 F overnight. Pain improved after IV doses of Zosyn and azithromycin. O2 saturations 90% on room room air. COVID-19 still pending. He has no loss of sense of taste or smell no change in appetite no abdominal discomfort or diarrhea. His cough is stable. He wishes to convalesce at home regardless of his COVID-19 status and will continue to self isolate until his results are called and he wishes to go home on prednisone and doxycycline after our discussion. Problem: Atypical pneumonia Morbid obesity with a BMI of 43 Thrombocytopenia Hypokalemia Hyperglycemia Greater than 30 minutes spent on d/c Discharge Information Condition at Discharge: Improved Follow Up: Weeks (1) Disposition/Orders: D/C to Home Scheduled Doxycycline Hyclate (Doxycycline Hyclate) 100 Mg Capsule, 1 CAP PO BID for Bronchitis for 5 Days, #10 Prescribed by: MOHINI GRANT MD on 12/08/20 2262 Prednisone (Prednisone) 20 Mg Tablet, 1 TAB PO DAILY for Bronchitis for 5 Days, #5 Prescribed by: MOHINI GRANT MD on 12/08/20 1652 Justicifation of Admission Dx: Justifications for Admission: Justification of Admission Dx: Yes MOHINI GRANT MD Dec 08, 2020 17:10
--- NOTE | 2020-12-08 17:58 | NUR ---
pt was discahrged home with self care. sent two scripts electronically to pharmacy of pt's choice. doxy and predinisone. IV was taken out and pt was walked out to the ED exit and to his personal vehicle, where he was to drive himself home. He was instructed to call back to see about his Covid results which were still pending. He was also instructed to self isolate at home and where his mask so as to not get others ill. Melo Navarro RN
[2020-12-08] MEDS ORDERED: LACTOBACILLUS RHAMNOSUS GG 1 CAPSULE. PO SCH (21:00)
== END 2020-12-09 06:00 | disposition home or self-care (01) | DRG 177 ==
LOC: ER 09:57 → 6 SOUTH 12:36
PROVIDERS: ADMIT Internal Medicine; ATTEND Internal Medicine
DX: U07.1 COVID-19 (principal); J12.82 Pneumonia due to coronavirus disease 2019; Z68.41 Body mass index [BMI] 40.0-44.9, adult; E87.6 Hypokalemia; E66.01 Morbid (severe) obesity due to excess calories; D69.6 Thrombocytopenia, unspecified; E11.65 Type 2 diabetes mellitus with hyperglycemia; R53.81 Other malaise; R53.83 Other fatigue
CPT/HCPCS: 36415; 71045; 80048; 80053; 83605; 83615; 85025; 85379; 86140; 87040; 87804; 96365; 96375; 99285; J0456; J0692; J1100; J1650; J2543; J2920; J7030; U0003; G0378